=== PATIENT | female | born 1935 | race Caucasian/White ===

== ENCOUNTER 2018-11-04 11:15 | Emergency (ER) | payer MEDICARE, OTHER ==
[~2018-11-04] VITALS: Ht 160 cm; Wt 80.0 kg
[~2018-11-04 11:15] MED LIST: ATEN-51 PO; ELIM TOP; LORA0.5T PO; MECL-77 PO; NYST15CR28 TOP; PIOG45TA9 PO; SITA1TAB3 PO
[2018-11-04 11:23] VITALS: BP 125/58; PULSE 74; RESP 18; Ht 160 cm; Wt 80.0 kg
== END 2018-11-04 14:09 | disposition home or self-care (01) ==
LOC: FTE 11:15
DX: L22 Diaper dermatitis (principal); I10 Essential (primary) hypertension; E11.9 Type 2 diabetes mellitus without complications; Z79.84 Long term (current) use of oral hypoglycemic drugs
CPT/HCPCS: 36415; 80053; 85025; 85610; 85730; 99284